=== PATIENT | female | born 1975 | race African-American/Black ===

== ENCOUNTER 2023-12-31 10:07 | Emergency (ER) | payer OTHER, SELFPAY ==
[2023-12-31 10:11] VITALS: BP 83/61
[2023-12-31 10:23] VITALS: BP 170/112
--- NOTE | 2023-12-31 10:24 | ED.GENMED ---
History of Present Illness
General
Chief Complaint: BURN-MINOR
Source: patient
Time Seen by Provider: 12/31/23 10:16
History of Present Illness
History of Present Illness:
48yoF with a history of hypertension presenting for evaluation of a burn. Patient was in the drive-thru at [employer] and she ordered a coffee. Patient took the coffee from the drive through window and accidentally spilled the hot coffee on her
right thigh. She was wearing sweatpants at the time. She presents with a partial thickness burn to the R thigh with pain. She is otherwise asymptomatic. Last Tdap in 2022.
Phy Exam
General Physical Exam
General Presentation: well appearing and no apparent distress
General age: appears stated age
General Skin: warm and dry
General Habitus: normal
General Mental: alert
Pulmonary Exam
Pulmonary Exam: no respiratory distress
Love Coma Scale
Eye Opening: Spontaneous
Verbal Response: Oriented
Motor Response: Obeys Commands
GCS Total Score: 15
Skin Exam
Skin Exam: warm/dry and other (R thigh burn noted with a central area of open skin with blistering consistent with a partial thickness burn. Area is surrounded with blanchable erythema that is painful to touch.)
Psychiatric Exam
Psychiatric Exam: normal mood/affect
Course
Orders/Labs/Results
Orders:
Orders
12/31/23 10:25
Acetaminophen [Tylenol] 1,000 mg PO NOW STA
Ibuprofen [Motrin] 600 mg PO NOW STA
Vital Signs
Initial and Last Documented VS:
Initial Vital Signs
Temp Pulse Resp BP Pulse Ox
99.0 F 159 20 83/61 97
12/31/23 10:11 12/31/23 10:11 12/31/23 10:11 12/31/23 10:11 12/31/23 10:11
Last Documented Vital Signs
Temp Pulse Resp BP Pulse Ox
99.0 F 111 18 163/93 99
12/31/23 10:11 12/31/23 11:08 12/31/23 11:08 12/31/23 11:08 12/31/23 11:08
MDM/Problems Addressed
Differential Diagnosis Includes:
48yoF here with a R thigh burn after spilling hot coffee on herself. There is a partial thickness burn on exam with blistering and area of exposed skin which is surrounded by blanchable erythema. Burn is localized to the R thigh. Tdap up to date.
Topical antibiotic and dressing applied by nursing staff. Home wound care discussed. Prescription provided for bacitracin and ibuprofen. Advised f/u with [facility] or wound care. ED return precautions discussed. She was discharged in stable
condition.
*Critical Care Note
Total Time (30-74mins, 75-104mins- exclusive of procedures): Not Applicable
ED Attending Note
-
Portions of this chart may have been created with voice recognition software.� Occasional wrong word or��sound alike� substitutions may have occurred due to the inherent limitations of voice recognition software.
Discharge Plan
Departure
Patient Disposition: Home (Routine Discharge)
Date of Disposition: 12/31/23
Time of Disposition: 10:49
Patient with high blood pressure during this ER visit?: Yes
Discharge Problem:
Partial thickness burn of right thigh
Instructions: [facility] (DC)
Prescriptions:
New
ibuprofen 600 mg tablet
600 mg PO Q6H PRN (Reason: Pain) Qty: 20 0RF
bacitracin 500 unit/gram ointment
1 applic topical TID Qty: 30 0RF
No Action
spironolactone
.ASDIRECTED
Referrals:
[facility] [[facility]] -
Activity Restrictions/Additional Instructions:
Change dressings daily. Keep area clean and dry.
Please follow-up with [facility] ([phone]) or the wound center.
Return to the ER with any signs of infection.
Interventions
Interventions:
*Nursing Disposition Last Done: 12/31/23 11:45
ED-Skin Assessment Last Done: 12/31/23 11:09
Discharge Date and Time
Discharge Date/Time: 12/31/23 11:45
Print Language: IVORIAN
[2023-12-31] MEDS: MOTRIN 600 MG PO (10:37)
[2023-12-31] MEDS: TYLENOL 1000 MG PO (10:37)
[2023-12-31 11:08] VITALS: BP 163/93
== END 2023-12-31 11:45 | disposition home or self-care (01) ==
LOC: EMR 10:07
PROVIDERS: EMERGENCY PHYSICIAN Emergency Medicine; FAMILY PHYSICIAN Internal Medicine Medical Oncology
DX: T24.211A Burn of second degree of right thigh, initial encounter (principal); X10.0XXA Contact with hot drinks, initial encounter; I10 Essential (primary) hypertension
CPT/HCPCS: 99283